=== PATIENT | male | born 1955 | race Caucasian/White ===

== ENCOUNTER 2020-06-09 07:36 | Emergency (ER) | payer MEDICARE, BC ==
[~2020-06-09] VITALS: Ht 170.2 cm; Wt 95.3 kg
[2020-06-09 09:12] LABS: BASOPHILS % (AUTO) 0.6 % (0.0-2.0); HEMATOCRIT 45.2 % (36.7-47.1); HEMOGLOBIN 14.9 g/dL (12.5-16.3); LYMPHOCYTES # (AUTO) 0.6 K/uL (20.0-40.0); LYMPHOCYTES % (AUTO) 10.7 % (20.5-51.5); MEAN CORPUSCULAR HEMOGLOBIN 27.5 uug (23.8-33.4); MEAN CORPUSCULAR HGB CONC 33 g/dL (32.5-36.3); MEAN CORPUSCULAR VOLUME 83.4 fL (73.0-96.2); MONOCYTES # (AUTO) 0.5 K/uL (2.0-10.0); MONOCYTES % (AUTO) 9.2 % (0.0-11.0); NEUTROPHILS # (AUTO) 4.4 K/uL (1.8-8.9); NEUTROPHILS % (AUTO) 79.5 % (38.5-71.5); PLATELET COUNT (AUTO) 129 K/uL (152-348); RED BLOOD CELL COUNT(AUTO) 5.42 MIL/uL (4.06-5.63); WHITE BLOOD COUNT (AUTO) 5.6 K/uL (3.6-10.2)
[2020-06-09 09:27] LABS: CREATININE 1.4 mg/dL (0.6-1.3)
[2020-06-09 09:45] LABS: BILIRUBIN,TOTAL 1.4 mg/dL (0.2-1.0)
[2020-06-09 09:49] LABS: TOTAL PROTEIN, SERUM 6.9 g/dL (6.4-8.2)
[2020-06-09] MEDS ORDERED: IV NORMAL SALINE 1000 ML BAG IV ONE (10:00)
[2020-06-09] MEDS ORDERED: DEXAMETHASONE SOD PHOSPHATE 4 MG INJ IV ONE (11:00)
[2020-06-09] MEDS ORDERED: DEXAMETHASONE SOD PHOSPHATE 10 MG INJ ONE (11:06)
--- NOTE | 2020-06-09 11:25 | NUR ---
PT DECIDED TO LEAVE HOSPITAL AMA. DR SOLITARIO EXPLAINED ALL RISKS OF LEAVING HOSPITAL AMA. PT VERBALISED FULL UNDERSTANDING . PT SIGNED AMA FORM AND LEFT HOSPITAL BY [facility]AXI. NO S/S OF ACUTE DISTRESS AT THIS TIME. NO SOB. NO N/V. PT DENIES PAIN.
[2020-06-09 11:27] VITALS: BP 139/81
== END 2020-06-09 11:28 | disposition left against medical advice (07) ==
LOC: ER 07:36
DX: U07.1 COVID-19 (principal); J12.82 Pneumonia due to coronavirus disease 2019; J96.01 Acute respiratory failure with hypoxia; N40.0 Benign prostatic hyperplasia without lower urinary tract symptoms; R94.31 Abnormal electrocardiogram [ECG] [EKG]; R79.1 Abnormal coagulation profile
CPT/HCPCS: 70030-TC; 71045; 83605; 83615; 85025; 85730; 86140; 87400; 93005; A4663; J1100; J7030; U0003

== ENCOUNTER 2020-06-14 08:43 | Emergency (ER) | payer MEDICARE, BC ==
[~2020-06-14] VITALS: Ht 170.2 cm; Wt 95.3 kg
--- NOTE | 2020-06-14 09:18 | NUR ---
PT IS IN ROOM #1B. DR MCDANIEL EVALUATED THE PT.
[2020-06-14 09:31] LABS: BASOPHILS # (AUTO) 0.1 K/uL (0.0-8.0); BASOPHILS % (AUTO) 0.9 % (0.0-2.0); EOSINOPHILS % (AUTO) 0.6 % (0.0-7.0); HEMATOCRIT 47.7 % (36.7-47.1); HEMOGLOBIN 15.9 g/dL (12.5-16.3); LYMPHOCYTES # (AUTO) 0.7 K/uL (20.0-40.0); LYMPHOCYTES % (AUTO) 10.3 % (20.5-51.5); MEAN CORPUSCULAR HEMOGLOBIN 28.1 uug (23.8-33.4); MEAN CORPUSCULAR HGB CONC 33 g/dL (32.5-36.3); MEAN CORPUSCULAR VOLUME 84.3 fL (73.0-96.2); MONOCYTES # (AUTO) 0.9 K/uL (2.0-10.0); MONOCYTES % (AUTO) 13.6 % (0.0-11.0); NEUTROPHILS # (AUTO) 5.2 K/uL (1.8-8.9); NEUTROPHILS % (AUTO) 74.6 % (38.5-71.5); PLATELET COUNT (AUTO) 351 K/uL (152-348); RED BLOOD CELL COUNT(AUTO) 5.66 MIL/uL (4.06-5.63); WHITE BLOOD COUNT (AUTO) 6.9 K/uL (3.6-10.2)
[2020-06-14 09:36] LABS: BILIRUBIN,DIRECT 0.3 mg/dL (0.0-0.2); BILIRUBIN,TOTAL 1.4 mg/dL (0.2-1.0); CREATININE 1.1 mg/dL (0.6-1.3); TOTAL PROTEIN, SERUM 7.2 g/dL (6.4-8.2)
[2020-06-14] MEDS ORDERED: DEXAMETHASONE SOD PHOSPHATE 4 MG INJ IM ONE (10:15)
[2020-06-14] MEDS ORDERED: DEXAMETHASONE SOD PHOSPHATE 10 MG INJ ONE (10:22)
[2020-06-14 11:30] VITALS: BP 132/71
--- NOTE | 2020-06-14 11:30 | NUR ---
PT WAS D/C'd TO HOME. D/C INSTRUCTIONS GIVEN TP THE PT BY DR MCDANIEL.
== END 2020-06-14 11:31 | disposition home or self-care (01) ==
LOC: ER 08:43
DX: U07.1 COVID-19 (principal); J12.82 Pneumonia due to coronavirus disease 2019; R53.1 Weakness
CPT/HCPCS: 36415; 71045; 80048; 80076; 84484; 85025; 93005; 99285; J1100; 70030-TC; A4663

== ENCOUNTER 2023-05-14 11:18 | Emergency (ER) | payer MEDICARE, BC ==
[~2023-05-14] VITALS: Ht 170.2 cm; Wt 90.7 kg
[~2023-05-14 11:18] MED LIST: AMLO10TA59 PO; CIPR500T5 PO; FINA5TAB11 PO; TAMS-3 PO
[2023-05-14 11:24] VITALS: O2SAT 99
== END 2023-05-14 11:35 | disposition left against medical advice (07) ==
LOC: ER 11:18
DX: T83.038A Leakage of other urinary catheter, initial encounter (principal); Z53.21 Procedure and treatment not carried out due to patient leaving prior to being seen by health care provider
CPT/HCPCS: A4606; A4663